=== PATIENT | male | born 1980 | race Caucasian/White ===

== ENCOUNTER 2021-05-09 16:41 | Emergency (ER) | payer BC, OTHER ==
[2021-05-09] MEDS ORDERED: LORazepam 2 MG/ML SDV IVPUSH ONE (17:34)
[2021-05-09] MEDS ORDERED: Metoclopramide 10 MG/2 ML SDV IVPUSH ONE (17:34)
[2021-05-09] MEDS ORDERED: HYDROmorphone 0.5 MG/0.5 ML Syringe IVPUSH ONE (17:34)
[2021-05-09] MEDS ORDERED: Sodium Chloride 0.9% 1,000 ML IV SCH (17:45)
[2021-05-09] MEDS ORDERED: Sodium Chloride 0.9% 10 ML Syringe FLUSH ONE (17:49)
[2021-05-09] MEDS ORDERED: Iopamidol 755 Mg/ML 100 ML Bottle IVPUSH ONE (17:49)
[2021-05-09] MEDS ORDERED: Sodium Chloride 0.9% 100 ML IV SCH (18:00)
[2021-05-09 18:11] LABS: CORONAVIRUS COVID-19 NAA POSITIVE (NEGATIVE)
[2021-05-09] MEDS ORDERED: amLODIPine 10 MG Tab PO ONE (18:50)
== END 2021-05-09 19:14 | disposition home or self-care (01) ==
LOC: JD.ED 16:41
DX: U07.1 COVID-19 (principal); F41.0 Panic disorder [episodic paroxysmal anxiety]; F43.9 Reaction to severe stress, unspecified; I10 Essential (primary) hypertension; F45.8 Other somatoform disorders; R00.0 Tachycardia, unspecified
CPT/HCPCS: 0240U; 36415; 70450; 70496; 70498; 71045; 80053; 80306; 80307; 81001; 82947; 85025; 85610; 85730; 86140; 93005; 96374; 96375; 99285; A9270; J1170; J2060; J2765; J7030; Q9967

== ENCOUNTER 2022-11-30 12:53 | Emergency (ER) | payer BC, OTHER | END 2022-11-30 13:51 | disposition home or self-care (01) | LOC: JD.ED 12:53 | DX: M25.561 Pain in right knee (principal); Z86.16 Personal history of COVID-19 | CPT/HCPCS: 73564-26-RT; 73564-RT; 99283 ==

== ENCOUNTER 2023-08-08 10:44 | Emergency (ER) | payer OTHER | END 2023-08-08 13:50 | disposition home or self-care (01) | LOC: JD.ED 10:44 | DX: J30.2 Other seasonal allergic rhinitis (principal); M25.561 Pain in right knee; Z86.16 Personal history of COVID-19; Z79.899 Other long term (current) drug therapy | CPT/HCPCS: 73562-26-RT; 73562-RT; 87651-QW; 99282; 99283 ==

== ENCOUNTER 2023-08-26 10:03 | Emergency (ER) | payer OTHER | END 2023-08-26 11:02 | disposition home or self-care (01) | LOC: JD.ED 10:03 | DX: I10 Essential (primary) hypertension (principal); E29.1 Testicular hypofunction; F41.1 Generalized anxiety disorder; Z76.0 Encounter for issue of repeat prescription; Z79.899 Other long term (current) drug therapy; Z86.16 Personal history of COVID-19 | CPT/HCPCS: 99281 ==

== ENCOUNTER 2023-12-11 10:09 | Emergency (ER) | payer BC, OTHER ==
[2023-12-11 11:38] LABS: BASOPHILS ABSOLUTE AUTO 0.1 K/mm3 (0.0-0.2); BASOPHILS PERCENT AUTO 0.5 % (0.0-1.0); EOSINOPHILS ABSOLUTE AUTO 0.1 K/mm3 (0.0-0.4); EOSINOPHILS PERCENT AUTO 0.4 % (0.0-6.0); HEMATOCRIT 52.9 % (42.0-52.0); HEMOGLOBIN 18.5 gm/dl (14.0-18.0); IMMATURE GRAN ABSOLUTE AUTO 0.03 K/mm3 (0.00-0.05); IMMATURE GRAN PERCENT AUTO 0.2 % (0.0-0.4); LYMPHOCYTES ABSOLUTE AUTO 1.9 K/mm3 (1.0-4.8); LYMPHOCYTES PERCENT AUTO 14.6 % (24.0-44.0); MEAN CORPUSCULAR HEMOGLOBIN 31.9 pg (28.0-32.0); MEAN CORPUSCULAR VOLUME 91.2 fl (83.0-99.0); MEAN PLATELET VOLUME 8.5 fl (9.4-12.4); MONOCYTES ABSOLUTE AUTO 0.8 K/mm3 (0.0-0.8); MONOCYTES PERCENT AUTO 6.3 % (0.0-8.0); NEUTROPHILS ABSOLUTE AUTO 10.3 K/mm3 (1.8-7.7); PLATELET COUNT,PLT 304 K/mm3 (150-400); WHITE BLOOD CELL COUNT,WBC 13.25 K/mm3 (3.9-11.3)
[2023-12-11 12:07] LABS: A/G RATIO 1.1 (1-2); ANION GAP 13.5 (5-15); BUN/CREATININE RATIO 9.1 (14-18); C-REACTIVE PROTEIN 0.44 mg/dL (<0.30); CALCIUM 9.6 mg/dL (8.5-10.1); CREATININE 1.1 mg/dL (0.7-1.3); EST CRCL DRUG DOSING (CG) 99.88 mL/min; POTASSIUM,K 3.5 mEq/L (3.5-5.1); PROTEIN TOTAL,TP 7.7 g/dl (6.4-8.2); URIC ACID 7.4 mg/dL (3.5-7.2)
[2023-12-11] MEDS: Acetaminophen/oxyCODONE 325-5 MG Tab PO ONE (12:07)
[2023-12-11] MEDS: ALPRAZolam 0.25 MG Tab PO ONE (12:07)
== END 2023-12-11 13:35 | disposition home or self-care (01) ==
LOC: JD.ED 10:09
DX: M23.91 Unspecified internal derangement of right knee (principal); I10 Essential (primary) hypertension; Z86.16 Personal history of COVID-19
CPT/HCPCS: 36415; 73562; 80053; 84550; 85025; 85652; 86140; 99283; A9270

== ENCOUNTER 2024-01-26 08:28 | Emergency (ER) | payer BC ==
[2024-01-26] MEDS: Ondansetron 4 MG Tab.DIS PO ONE (09:07)
[2024-01-26] MEDS: Acetaminophen/oxyCODONE 325-5 MG Tab PO ONE (09:07)
== END 2024-01-26 09:24 | disposition home or self-care (01) ==
LOC: JD.ED 08:28
DX: S29.012A Strain of muscle and tendon of back wall of thorax, initial encounter (principal); X50.0XXA Overexertion from strenuous movement or load, initial encounter; I10 Essential (primary) hypertension; Z86.16 Personal history of COVID-19; F17.210 Nicotine dependence, cigarettes, uncomplicated; Z79.82 Long term (current) use of aspirin; Z79.899 Other long term (current) drug therapy
CPT/HCPCS: 71046; 99283; A9270

== ENCOUNTER 2024-01-31 08:34 | Emergency (ER) | payer BC ==
[2024-01-31] MEDS ORDERED: Naloxone 0.4 MG/ML SDV IVPUSH PRN (09:00)
[2024-01-31] MEDS: HYDROmorphone 1 MG/ML Syringe IVPUSH ONE (09:46)
[2024-01-31 09:51] LABS: BASOPHILS ABSOLUTE AUTO 0.1 K/mm3 (0.0-0.2); BASOPHILS PERCENT AUTO 0.8 % (0.0-1.0); EOSINOPHILS ABSOLUTE AUTO 0.1 K/mm3 (0.0-0.4); EOSINOPHILS PERCENT AUTO 2.1 % (0.0-6.0); HEMATOCRIT 51.2 % (42.0-52.0); HEMOGLOBIN 17.4 gm/dl (14.0-18.0); LYMPHOCYTES ABSOLUTE AUTO 2.2 K/mm3 (1.0-4.8); LYMPHOCYTES PERCENT AUTO 35.1 % (24.0-44.0); MEAN CORPUSCULAR HEMOGLOBIN 31.4 pg (28.0-32.0); MEAN CORPUSCULAR VOLUME 92.4 fl (83.0-99.0); MEAN PLATELET VOLUME 8.9 fl (9.4-12.4); MONOCYTES ABSOLUTE AUTO 0.7 K/mm3 (0.0-0.8); MONOCYTES PERCENT AUTO 10.6 % (0.0-8.0); NEUTROPHILS ABSOLUTE AUTO 3.2 K/mm3 (1.8-7.7); NEUTROPHILS PERCENT AUTO 51.4 % (41.0-71.0); PLATELET COUNT,PLT 294 K/mm3 (150-400); RED BLOOD CELL COUNT 5.54 M/mm3 (4.52-5.90); WHITE BLOOD CELL COUNT,WBC 6.16 K/mm3 (3.9-11.3)
[2024-01-31] MEDS: Iopamidol 755 Mg/ML 100 ML Bottle IVPUSH ONE (09:52)
[2024-01-31] MEDS: Sodium Chloride 0.9% 10 ML Syringe FLUSH PRN (09:52)
[2024-01-31] MEDS: Sodium Chloride 0.9% 100 ML IV SCH (09:53)
[2024-01-31 10:33] LABS: ALBUMIN 3.8 g/dl (3.4-5.0); ANION GAP 11.8 (5-15); BILIRUBIN TOTAL 0.3 mg/dL (0.2-1.0); BUN/CREATININE RATIO 10.8 (14-18); CALCIUM 8.9 mg/dL (8.5-10.1); CREATININE 1.2 mg/dL (0.7-1.3); EST CRCL DRUG DOSING (CG) 90.63 mL/min; POTASSIUM,K 3.8 mEq/L (3.5-5.1); PROTEIN TOTAL,TP 7.5 g/dl (6.4-8.2)
== END 2024-01-31 11:15 | disposition home or self-care (01) ==
LOC: JD.ED 08:34
DX: R07.9 Chest pain, unspecified (principal); I10 Essential (primary) hypertension; F17.210 Nicotine dependence, cigarettes, uncomplicated; Z86.16 Personal history of COVID-19; Z79.891 Long term (current) use of opiate analgesic; Z79.899 Other long term (current) drug therapy
CPT/HCPCS: 36415; 71275; 80053; 84484; 85025; 93005; 99284; J3490; Q9967; 93010

== ENCOUNTER 2024-03-15 10:26 | Emergency (ER) | payer BC | END 2024-03-15 11:00 | disposition left against medical advice (07) | LOC: JD.ED 10:26 | DX: R07.81 Pleurodynia (principal); I10 Essential (primary) hypertension; Z86.16 Personal history of COVID-19; Z79.899 Other long term (current) drug therapy; Z53.29 Procedure and treatment not carried out because of patient's decision for other reasons | CPT/HCPCS: 99283 ==

== ENCOUNTER 2024-07-04 10:08 | Emergency (ER) | payer BC ==
[2024-07-04] MEDS: Ondansetron 4 MG Tab.DIS PO ONE (10:48)
[2024-07-04] MEDS: Ketorolac 60 MG/2 ML SDV IM ONE (10:48)
== END 2024-07-04 12:05 | disposition home or self-care (01) ==
LOC: JD.ED 10:08
DX: R07.89 Other chest pain (principal); I10 Essential (primary) hypertension; Z79.899 Other long term (current) drug therapy; Z86.16 Personal history of COVID-19
CPT/HCPCS: 71101; 96372; 99283; A9270; J1885; 99284

== ENCOUNTER 2024-08-01 09:43 | Emergency (ER) | payer BC ==
[2024-08-01] MEDS: LORazepam 1 MG Tab PO ONE (11:24)
== END 2024-08-01 11:39 | disposition home or self-care (01) ==
LOC: JD.ED 09:43
DX: F11.90 Opioid use, unspecified, uncomplicated (principal); F41.9 Anxiety disorder, unspecified; I10 Essential (primary) hypertension; F17.210 Nicotine dependence, cigarettes, uncomplicated; Z86.16 Personal history of COVID-19; Z79.899 Other long term (current) drug therapy
CPT/HCPCS: 99283; A9270-GY

== ENCOUNTER 2024-10-04 12:11 | Emergency (ER) | payer SELFPAY | END 2024-10-04 13:00 | disposition home or self-care (01) | LOC: JD.ED 12:11 | DX: S86.112A Strain of other muscle(s) and tendon(s) of posterior muscle group at lower leg level, left leg, initial encounter (principal); I10 Essential (primary) hypertension; F17.200 Nicotine dependence, unspecified, uncomplicated; Z79.899 Other long term (current) drug therapy; Z86.16 Personal history of COVID-19; W22.8XXA Striking against or struck by other objects, initial encounter | CPT/HCPCS: 99283 ==

== ENCOUNTER 2024-10-07 12:12 | Emergency (ER) | payer SELFPAY | END 2024-10-07 14:20 | disposition home or self-care (01) | LOC: JD.ED 12:12 | DX: S86.112D Strain of other muscle(s) and tendon(s) of posterior muscle group at lower leg level, left leg, subsequent encounter (principal); I10 Essential (primary) hypertension; Z79.899 Other long term (current) drug therapy; Z86.16 Personal history of COVID-19; X58.XXXD Exposure to other specified factors, subsequent encounter | CPT/HCPCS: 93971-26-LT; 93971-LT; 99283 ==

== ENCOUNTER 2024-11-26 15:21 | Emergency (ER) | payer SELFPAY ==
[2024-11-26] MEDS: Acetaminophen/oxyCODONE 325-5 MG Tab PO ONE (15:44)
[2024-11-26] MEDS: Ketorolac 60 MG/2 ML SDV IM ONE (15:45)
== END 2024-11-26 15:50 | disposition home or self-care (01) ==
LOC: JD.ED 15:21
DX: S01.512A Laceration without foreign body of oral cavity, initial encounter (principal); K01.1 Impacted teeth; I10 Essential (primary) hypertension; Z86.16 Personal history of COVID-19; Z79.899 Other long term (current) drug therapy; W22.8XXA Striking against or struck by other objects, initial encounter; Y93.89 Activity, other specified
CPT/HCPCS: 96372; 99283; A9270; J1885; J8540; 99284

== ENCOUNTER 2024-12-17 15:23 | Emergency (ER) | payer SELFPAY | END 2024-12-17 16:10 | disposition home or self-care (01) | LOC: JD.ED 15:23 | DX: M25.561 Pain in right knee (principal); I10 Essential (primary) hypertension; Z86.16 Personal history of COVID-19; Z79.899 Other long term (current) drug therapy | CPT/HCPCS: 99283; A9270 ==

== ENCOUNTER 2025-02-07 09:23 | Emergency (ER) | payer SELFPAY | END 2025-02-07 10:34 | disposition left against medical advice (07) | LOC: JD.ED 09:23 | DX: Z53.21 Procedure and treatment not carried out due to patient leaving prior to being seen by health care provider (principal) ==